=== PATIENT | male | born 2000 | race Caucasian/White ===

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

== ENCOUNTER 2022-09-12 12:52 | Emergency (ER) | payer OTHER, SELFPAY ==
--- NOTE | ~2022-09-12 | XR_ITS ---
EXAMINATION: XR KNEE, LEFT CLINICAL INFORMATION: Pain. No injury. COMPARISON: None TECHNIQUE: Four views of the left knee. FINDINGS: No fracture or dislocation. No suprapatellar joint effusion. Joint spaces are well-maintained. No appreciable degenerative changes. No focal soft tissue swelling of the anterior knee. XR/XR knee LT 4V IMPRESSION: Unremarkable radiographs of the left knee.
--- NOTE | ~2022-09-12 | US_ITS ---
EXAMINATION: US soft tissue left popliteal fossa CLINICAL INFORMATION: Pain no injury COMPARISON: None available at the time of this dictation. TECHNIQUE: High-frequency linear transducer ultrasound utilized, area of interest scanned, popliteal fossa FINDINGS: No ultrasound evidence of soft tissue mass, cyst or abscess, or abnormal distortion. US/US extremity nonvascular IMPRESSION: Unremarkable ultrasound. No popliteal/Corbett's cyst found.
[2022-09-12 12:54] VITALS: BP 142/92; PULSE 100; RESP 16; TEMP 36.6; O2SAT 99; BMI 37.9
--- NOTE | 2022-09-12 12:55 | ED_ITS ---
HPI - Extremity Injury (Lower) General Chief Complaint: Extremity Problem <Tess Torrez CNP - Last Filed: 09/12/22 13:08> Stated Complaint: Cyst behind knee <Tess Torrez CNP - Last Filed: 09/12/22 13:08> Time Seen by Provider: 09/12/22 13:10 <Tess Torrez CNP - Last Filed: 09/12/22 13:08> Source: patient <Iman Agrawal NP - Last Filed: 09/12/22 14:30> Mode of arrival: ambulatory <Iman Agrawal NP - Last Filed: 09/12/22 14:30> Limitations: no limitations <Iman Agrawal NP - Last Filed: 09/12/22 14:30> History of Present Illness HPI Narrative: 22-year-old male previously healthy here with atraumatic posterior left knee pain for the last 3 days. Patient was seen at urgent care and referred into the emergency room for an ultrasound to rule out a Corbett cyst. Patient denies any calf pain. Does feel like there is some swelling behind the knee. No redness, warmth, fevers or chills. Patient denies any injury or trauma. Patient denies any recent travel, recent surgeries. <Iman Agrawal NP - Last Filed: 09/12/22 14:30> Related Data Home Medications: Previous Rx's Medication Instructions Recorded amoxicillin 875 mg-potassium 1 tab PO BID #14 tabs 02/05/21 clavulanate 125 mg tablet (Augmentin) fluticasone propionate 50 1 spray intranasal BID #16 grams 02/05/21 mcg/actuation nasal spray,suspension (Flonase Allergy Relief) <Tess Torrez CNP - Last Filed: 09/12/22 13:08> Allergies/Adverse Reactions: Allergies Allergy/AdvReac Type Severity Reaction Status Date / Time No Known Allergies Allergy Verified 02/05/21 09:16 <Tess Torrez CNP - Last Filed: 09/12/22 13:08> Review of Systems Review of Systems: Yes all other systems are reviewed and are negative <Iman Agrawal NP - Last Filed: 09/12/22 14:30> Constitutional: Constitutional: Reports no additional constitutional complaints, Denies body ache(s), Denies chills, Denies fever(s), Denies headache(s) and Denies weakness <Iman Agrawal [employer] - Last Filed: 09/12/22 14:30> Eyes: Eyes: Reports no additional eye complaints and Denies change in vision <Iman Agrawal [employer] - Last Filed: 09/12/22 14:30> ENT: Reports system reviewed and no additional complaints, except as documented, Denies dizziness, Denies headache(s), Denies nasal congestion, Den ies nasal discharge and Denies neck pain <Iman Agrawal [employer] - Last Filed: 09/12/22 14:30> Cardiovascular: Cardiovascular: Reports no additional cardiovascular complaints, Denies chest pain, Denies leg edema and Denies dyspnea <Iman Agrawal [employer] - Last Filed: 09/12/22 14:30> Respiratory: Respiratory: Reports no additional respiratory complaints, Denies cough and Denies dyspnea <Iman Agrawal [employer] - Last Filed: 09/12/22 14:30> Gastrointestinal: Gastrointestinal: Reports no additional gastrointestinal complaints, Denies abdominal pain, Denies diarrhea, Denies nausea and Denies vomiting <Iman Agrawal [employer] - Last Filed: 09/12/22 14:30> Genitourinary: Genitourinary: Denies urinary incontinence <Iman Agrawal [employer] - Last Filed: 09/12/22 14:30> Musculoskeletal: Musculoskeletal: Reports no additional musculoskeletal complaints, Denies back pain, Reports arthralgias, Denies joint swelling, Denies neck pain, Denies numbness and Denies tingling <Iman Agrawal [employer] - Last Filed: 09/12/22 14:30> Integumentary/Breasts: Skin/Breast: Reports system reviewed and no additional complaints, except as docu and Denies rash <Iman Agrawal [employer] - Last Filed: 09/12/22 14:30> Neurologic: Reports system reviewed and no additional complaints, except as documented, Denies Abnormal speech present, Denies dizziness, Denies headache(s), Denies numbness, Denies tingling and Denies weakness <Iman Agrawal NP - Last Filed: 09/12/22 14:30> PMFSH Past Medical History Attestation statement: The following information was validated with the patient. <Iman Agrawal NP - Last Filed: 09/12/22 14:30> Source: old records reviewed and nursing notes reviewed <Iman Agrawal NP - Last Filed: 09/12/22 14:30> Medical History: Medical History Asthma <Tess Torrez CNP - Last Filed: 09/12/22 13:08> Social History Social History: Social History Advance Directives: No Advance Directives Information Provided: Yes <Tess Torrez CNP - Last Filed: 09/12/22 13:08> Physical Exam Vital Signs: Vital Signs: Last Vital Signs Temp 97.9 F 09/12/22 12:54 Pulse 100 09/12/22 12:54 Resp 16 09/12/22 12:54 BP 142/92 H 09/12/22 12:54 Pulse Ox 99 09/12/22 12:54 O2 Del Method 09/12/22 12:54 BMI result Body Mass Index 37.9 <Tess Torrez CNP - Last Filed: 09/12/22 13:08> Vital Signs: Last Vital Signs Temp 97.9 F 09/12/22 12:54 Pulse 100 09/12/22 12:54 Resp 16 09/12/22 12:54 BP 142/92 H 09/12/22 12:54 Pulse Ox 99 09/12/22 12:54 O2 Del Method 09/12/22 12:54 BMI result Body Mass Index 37.9 <Iman Agrawal NP - Last Filed: 09/12/22 14:30> Const: General: cooperative, healthy appearing, comfortable and no acute distress <Iman Agrawal NP - Last Filed: 09/12/22 14:30> Orientation/consciousness: patient oriented x3 <Iman Agrawal NP - Last Filed: 09/12/22 14:30> Limitations: no limitations <Iman Agrawal, [employer] - Last Filed: 09/12/22 14:30> HEENT: Head: Yes normal to inspection <Iman Agrawal, [employer] - Last Filed: 09/12/22 14:30> Ears: hearing grossly normal bilaterally <Iman Agrawal, [employer] - Last Filed: 09/12/22 14:30> General nose exam: Normal external nose present <Iman Agrawal, [employer] - Last Filed: 09/12/22 14:30> Face and sinus: Yes normal facial exam <Iman Agrawal, [employer] - Last Filed: 09/12/22 14:30> Mouth: Normal oral and palatal mucosa present <Iman Agrawal, [employer] - Last Filed: 09/12/22 14:30> Throat: Yes posterior oropharynx normal <Iman Agrawal [employer] - Last Filed: 09/12/22 14:30> Eyes: General: appearance normal, both eyes and all related structures <Iman Agrawal, [employer] - Last Filed: 09/12/22 14:30> Pupils: Equal, round and reactive pupils present <Iman Agrawla [employer] - Last Filed: 09/12/22 14:30> Neck: Neck: Yes normal visual inspection <Iman Agrawal [employer] - Last Filed: 09/12/22 14:30> Chest: Chest palpation & inspection: normal inspection of the chest <Iman Agrawal [employer] - Last Filed: 09/12/22 14:30> Resp: Effort & Inspection: normal respiratory effort <Iman Agrawal [employer] - Last Filed: 09/12/22 14:30> Auscultation: clear to auscultation bilaterally <Iman Agrawal [employer] - Last Filed: 09/12/22 14:30> Cardio: Rate: regular rate <Iman Agrawal [employer] - Last Filed: 09/12/22 14:30> Rhythm: regular rhythm <Iman Agrawal [employer] - Last Filed: 09/12/22 14:30> Peripheral pulses: Peripheral pulses 2+ throughout <Iman Ivelisseobed, [employer] - Last Filed: 09/12/22 14:30> GI: Inspection: Yes normal to inspection <Iman Del Cidsu, [employer] - Last Filed: 09/12/22 14:30> Palpation (GI): Soft to palpation and nontender <Iman Ivelisseobed, [employer] - Last Filed: 09/12/22 14:30> Auscultation: normal bowel sounds <Iman Nehemiassu, [employer] - Last Filed: 09/12/22 14:30> Back/Spine/Pelvis: Thoracic/Lumbar Spine: thoracic and lumbar spine normal to inspection <Iman Tanja, [employer] - Last Filed: 09/12/22 14:30> Skin: General skin exam: no rashes or lesions noted <Iman Tanja, [employer] - Last Filed: 09/12/22 14:30> Neuro: General: patient oriented x3, no focal motor deficits and normal sensation to monofilament <Iman Nehemiassu, [employer] - Last Filed: 09/12/22 14:30> Cranial nerves: Yes Equal, round and reactive pupils present <Iman Nehemiassu, [employer] - Last Filed: 09/12/22 14:30> Cognition (Neuro): normal cognition <Iman Nehemiassu, [employer] - Last Filed: 09/12/22 14:30> Speech: No Abnormal speech present <Iman Nehemiassu, [employer] - Last Filed: 09/12/22 14:30> Gait exam (Neuro): Normal gait present <Iman Nehemiassu, [employer] - Last Filed: 09/12/22 14:30> Motor exam (neuro): 5/5 motor strength present throughout <Iman Tanja, [employer] - Last Filed: 09/12/22 14:30> Extrem: Other: There is pain to the posterior left knee. Full range of motion. No ligamental laxity. No calf pain or calf swelling. Normal distal pulses. <Iman Tanja, [employer] - Last Filed: 09/12/22 14:30> General: Yes normal to inspection <Iman Tanja, [employer] - Last Filed: 09/12/22 14:30> Course Course Course Narrative: This is an RME: Additional HPI, ROS, PE not included below will be deferred to primary provider. Patient is a 22-year-old male who presents emergency department with referral from urgent care. He was referred for left knee pain, onset 3 days ago. Was advised that he needed an ultrasound to evaluate for potential cyst behind the knee. Denies any numbness, tingling, injury. Denies hx of DVT/PE. Plan: d-dimer <Tess Torrez CNP - Last Filed: 09/12/22 13:08> Reevaluation(s) Reevaluation #1: No x-ray negative for bony abnormality. Ultrasound negative for deep Corbett cyst. Less likely DVT.? Strain or sprain. Recommend Rafa wrap, supportive care, follow up with primary care for any persistent symptoms. Reviewed worrisome signs and symptoms when to return to the emergency room. Comfortable plan for discharge home. <Iman Agrawal NP - Last Filed: 09/12/22 14:30> Medical Decision Making Medical Decision Making MDM Narrative: 22-year-old male here with atraumatic left posterior knee pain for the last 3 days. Will obtain US, x-ray <Iman Agrawal NP - Last Filed: 09/12/22 14:30> Differential Diagnosis Differential Diagnoses: The differential diagnosis associated with the presentation includes <Iman Agrawal NP - Last Filed: 09/12/22 14:30> bakers cyst DVT-less likely. No risk factors, no history of same, no calf swelling or calf pain. No swelling or redness <Iman Agrawal NP - Last Filed: 09/12/22 14:30> Independent Interpretation I performed an independent interpretation of an: Plain X-Ray and Ultrasound <Iman Agrawal NP - Last Filed: 09/12/22 14:30> Interpretation: i indepedentely reviewed the x-ray and ultrasound and agree with radiologist's report <Iman Agrawal NP - Last Filed: 09/12/22 14:30> Radiology Impression Discussion of test interpretation with radiology: I have reviewed the radiologist's reading. <Iman Agrawal NP - Last Filed: 09/12/22 14:30> Radiologist Impression: [address] [address] Ultrasound Report Signed Patient: Sarah Barger MR#: [id number] : 2000 Acct:[id number] Age/Sex: 22 / M ADM Date: 09/12/22 Loc: HO.ED Attending Dr: Ordering Physician: Iman Moffett NP Date of Service: 09/12/22 Procedure(s): US extremity nonvascular Accession Number(s): [id number] cc: Iman Moffett NP~ EXAMINATION: US soft tissue left popliteal fossa CLINICAL INFORMATION: Pain no injury COMPARISON: None available at the time of this dictation. TECHNIQUE: High-frequency linear transducer ultrasound utilized, area of interest scanned, popliteal fossa FINDINGS: No ultrasound evidence of soft tissue mass, cyst or abscess, or abnormal distortion. US/US extremity nonvascular IMPRESSION: Unremarkable ultrasound. No popliteal/Corbett's cyst found. ? ? Launch?Image [address] [address] XRay Report Signed Patient: Sarah Barger MR#: [id number] : 2000 Acct:[id number] Age/Sex: 22 / M ADM Date: 09/12/22 Loc: .ED Attending Dr: Ordering Physician: Iman Moffett NP Date of Service: 09/12/22 Procedure(s): XR knee LT 4V Accession Number(s): [id number] cc: Iman Moffett NP~ EXAMINATION: XR KNEE, LEFT CLINICAL INFORMATION: Pain. No injury.? COMPARISON: None? TECHNIQUE: Four views of the left knee. FINDINGS: No fracture or dislocation. No suprapatellar joint effusion. Joint spaces are well-maintained. No appreciable degenerative changes. No focal soft tissue swelling of the anterior knee.? XR/XR knee LT 4V IMPRESSION: Unremarkable radiographs of the left knee. ? <Iman Agrawal NP - Last Filed: 09/12/22 14:30> Discharge Plan Discharge Clinical Impression: Left knee sprain <Tess Torrez CNP - Last Filed: 09/12/22 13:08> Patient Disposition: Home, Self-Care <Tess Torrez CNP - Last Filed: 09/12/22 13:08> Instructions: Knee Sprain (ED) <Tess Torrez CNP - Last Filed: 09/12/22 13:08> Additional Instructions: X-ray shows no bony abnormality. Ultrasound is negative for Corbett cyst. Ice, elevate, Motrin or Tylenol for pain as needed Follow-up with primary care doctor for any persistent symptoms <Tess Torrez CNP - Last Filed: 09/12/22 13:08> Prescriptions: No Action fluticasone propionate [Flonase Allergy Relief] 50 mcg/actuation spray,suspension 1 spray intranasal BID Qty: 16 0RF Rx Instructions: administer into each nostril amoxicillin-pot clavulanate [Augmentin] 875-125 mg tablet 1 tab PO BID Qty: 14 0RF <Tess Torrez CNP - Last Filed: 09/12/22 13:08> Referrals: Physician,Unknown J [Primary Care Provider] - <Tess Torrez CNP - Last Filed: 09/12/22 13:08>
--- NOTE | 2022-09-12 14:11 | PC.NURSE ---
lidocaine 2% viscous applied to gauze, instructed pt to bite down for analgesia to the affected area
--- NOTE | 2022-09-12 14:33 | PC.NURSE ---
babatunde wrap applied to right knee, encouraged pt to utilize for comfot and support as needed. pt verbalizes understanding. NAD at discharge
== END 2022-09-12 14:34 | disposition home or self-care (01) ==
PROVIDERS: Emergency Provider Student in an Organized Health Care Education/Training Program
DX: R60.0 Localized edema (principal); M71.22 Synovial cyst of popliteal space [Baker], left knee; M25.562 Pain in left knee; Z79.899 Other long term (current) drug therapy
CPT/HCPCS: 73564; 76882; 99283

== ENCOUNTER 2022-11-13 12:45 | Emergency (ER) | payer OTHER, SELFPAY ==
[2022-11-13 12:58] VITALS: BP 154/97; PULSE 101; RESP 14; TEMP 35.9; O2SAT 99; BMI 37.1
--- NOTE | 2022-11-13 12:58 | ED_ITS ---
HPI - General Adult General Chief complaint: Urogenital-Male Stated complaint: wellness check Time Seen by Provider: 11/13/22 13:06 Source: patient Mode of arrival: ambulatory Limitations: no limitations History of Present Illness HPI narrative: 22-year-old male presents for evaluation of STD testing, patient was in contact with chlamydia he thinks. Is requesting testing. Is asymptomatic at this time. No history of STDs in the past. Denies fevers, chills, rash, chest pain, shortness of breath, nausea, vomiting, abdominal pain. Related Data Previous Rx's Medication Instructions Recorded amoxicillin 875 mg-potassium 1 tab PO BID #14 tabs 02/05/21 clavulanate 125 mg tablet (Augmentin) fluticasone propionate 50 1 spray intranasal BID #16 grams 02/05/21 mcg/actuation nasal spray,suspension (Flonase Allergy Relief) doxycycline hyclate 100 mg capsule 100 mg PO BID 10 days #20 caps 11/13/22 metronidazole 500 mg tablet 500 mg PO BID 7 days #14 tabs 11/13/22 Allergies Allergy/AdvReac Type Severity Reaction Status Date / Time No Known Allergies Allergy Verified 02/05/21 09:16 Review of Systems Review of Systems: Constitutional : No Weight loss, No Fever, No Chills, No Fatigue, No Malaise ENT/Mouth : No sore throat, No Rhinorrhea Eyes: No Eye Pain, No Swelling, No Redness Cardiovascular : No Chest Pain, No SOB, No Dyspnea on Exertion, No Orthopnea, No Edema, No Palpitations Respiratory : No Cough, No Sputum, No Wheezing Gastrointestinal : No Nausea, No Vomiting, No Diarrhea, No Constipation, No abdominal Pain, No Hematochezia, No Melena Genitourinary : No Dysuria, No Urinary Frequency, No Hematuria, Musculoskeletal : No joint pain, No Myalgias, No Joint Swelling Skin : No Skin Lesions, No rash Neuro : No Weakness, No Numbness, No Dizziness, No Headache Psych : No Anxiety/Panic, No Depression All other systems reviewed and are negative Yes all other systems are reviewed and are negative [facility] Past Medical History Attestation statement: The following information was validated with the patient. Source: old records reviewed and nursing notes reviewed Medical History Asthma Physical Exam ED Vital Signs: Vital Signs - 24 hr 11/13/22 12:58 Temperature 96.7 F L Pulse Rate 101 H Respiratory Rate 14 Blood Pressure 154/97 H Pulse Oximetry 99 Oxygen Delivery Method Room Air BMI result Body Mass Index 37.1 vss Appearance: Alert.? Oriented X3.? No acute distress.? Head: Normocephalic, atraumatic, no step-offs or deformities Eyes: Pupils equal, round and reactive to light.? CVS: Normal heart rate and rhythm.? Pulses normal.? Respiratory: No respiratory distress.? Breath sounds normal.? Abdomen: Soft and nontender.? Skin: Skin warm and dry.? Normal skin color.? Normal skin turgor.? Extremities: No lower extremity edema.? No calf ttp. 5/5 strength to bilateral upper and lower extremities Neuro: Oriented X 3.? No motor deficit.? No sensory deficit. CN 2-12 intact Course Reevaluation(s) Reevaluation #1: Patient discharged home with STD treatments. Educated on worrisome signs and symptoms when to return. Comfortable discharge Time: 13:04 Medical Decision Making Medical Decision Making [facility] Narrative: [age] male presents for STD testing was exposed to chlamydia. Physical exam benign. Sensitive exam deferred Likely STD. Unlikely metabolic derangements. Patient agrees to prophylactic treatment for gonorrhea, chlamydia and trichomonas. 500mg IM ceftriaxone has been given here and scripts for doxycycline 100 mg po BID X 7 days and metronidazole 500 mg po BID X 7 days have been given to the patient. Educated on safe sex practices, full pannel STD testing and speaking to? partners on possible STD. Differential Diagnosis Differential Diagnoses: The differential diagnosis associated with the presentation includes Likely STD. Unlikely metabolic derangements. Admission/Observation Consideration of admission/observation: Escalation of care including admission/observation considered Unlikely Core Measures AMI core measures followed: Yes Measure exclusions: not indicated Critical Care Time Critical Care Time Critical Care Time: No Discharge Plan Discharge Clinical Impression: Encounter for assessment of STD exposure Patient Disposition: Home, Self-Care Instructions: Sexually Transmitted Diseases (ED), Safe Sex Practices (ED), Safe Sex Practices for Adolescents (ED) Additional Instructions: Take your medications as prescribed. If you were prescribed antibiotics today, it is important that you take your medication to their entirety, do not skip any doses, do not finish them early. Follow-up with your primary care provider this week. Return to the emergency department with new or worsening symptoms. Such as fevers, chills, chest pain, shortness of breath, nausea, vomiting, dizziness, headache, vision changes, lethargy In case of emergency call 911 You were treated here today with ceftriaxone, a medication that treats gonorrhea. I have sent to your pharmacy Metronidazole that covers trichomonas, and Doxycycline which covers for chlamydia. Please be reevaluated by a healthcare provider after completing your antibiotics. Do not stop them early, do not skip any doses. Until you are reevaluated by a health care provider please practice safe sex as disucussed. Please also have a conversation with your sexual partners.? I also advise you to obtain full panel STD testing to test for other STDs including HIV, Hepatitis B & C and syphilis with your PCP or a local clinic. Prescriptions: New doxycycline hyclate 100 mg capsule 100 mg PO BID 10 Days Qty: 20 0RF metronidazole 500 mg tablet 500 mg PO BID 7 Days Qty: 14 0RF No Action fluticasone propionate [Flonase Allergy Relief] 50 mcg/actuation spray,suspension 1 spray intranasal BID Qty: 16 0RF Rx Instructions: administer into each nostril amoxicillin-pot clavulanate [Augmentin] 875-125 mg tablet 1 tab PO BID Qty: 14 0RF Referrals: Physician,Unknown J [Primary Care Provider] - 2 days Stand Alone Forms: Work/School Release
[2022-11-13] MEDS: Doxycycline Monohydrate 100 MG CAPSULE PO (13:31)
[2022-11-13] MEDS: metroNIDAZOLE 500 MG TABLET PO (13:31)
[2022-11-13] MEDS: cefTRIAXone sodium 500 MG, Lidocaine HCl 1 % MPF 1 ML IM (13:31)
[2022-11-13 14:49] LABS: CT PCR NOT DETECTED (Not Detect.); NG PCR NOT DETECTED (Not Detect.)
== END 2022-11-13 13:35 | disposition home or self-care (01) ==
PROVIDERS: Physician Assistant; Emergency Provider Emergency Medicine
DX: Z20.2 Contact with and (suspected) exposure to infections with a predominantly sexual mode of transmission (principal)
CPT/HCPCS: 0353U; 96372; 99282; 99284; J0696